=== PATIENT | female | born 1990 | race Caucasian/White ===

== ENCOUNTER 2018-07-06 06:22 | Day surgery (SDC) | payer OTHER ==
[~2018-07-06] VITALS: Ht 152.4 cm; Wt 58.9 kg
[~2018-07-06 06:22] MED LIST: PNV11TAB PO
[2018-07-06] MEDS ORDERED: FAMOTIDINE (07:01)
[2018-07-06] MEDS ORDERED: OMEPRAZOLE (07:01)
[2018-07-06 07:14] VITALS: BP 112/76; PULSE 57; RESP 16
[2018-07-06] MEDS ORDERED: LIDOCAINE 4% SOLUTION 50 ML BTL ONE (08:00)
[2018-07-06 08:49] VITALS: BP 90/61; RESP 20
[2018-07-06] MEDS ORDERED: FENTAnyl 50 MCG/ML VIAL ONE (09:41)
[2018-07-06] MEDS ORDERED: MIDAZOLAM 1 MG/ML 2 ML INJ ONE ×2 (09:41→09:42)
== END 2018-07-06 10:44 | disposition home or self-care (01) ==
LOC: GIL 06:22
PROVIDERS: ATTEND Internal Medicine Gastroenterology
DX: K29.30 Chronic superficial gastritis without bleeding (principal)
CPT/HCPCS: 43239; 88305; 88312; J2250; J3010; Z7610